=== PATIENT | female | born 1955 | race Caucasian/White ===

== ENCOUNTER 2019-03-10 09:23 | Day surgery (SDC) | payer MEDICARE, OTHER ==
[~2019-03-10] VITALS: Ht 167.6 cm; Wt 75.3 kg
[~2019-03-10 09:23] MED LIST: ADVA230A; LEVO100T5; LIDOCAINE 2% INJ 100 MG/5 ML SDV (FOR ANES.) As Ordered ONE; PANT40TA3; PROAAER10; PROPOFOL 200 MG/20 ML VIAL As Ordered ONE; SPIR1CAP
[2019-03-10] MEDS ORDERED: NS 1,000 ML IV ONE (10:30)
--- NOTE | 2019-03-10 10:30 | ROOR ---
Patient Name: Emily Gresham Procedure Date: 03/10/2019 10:15 AM Date of : 1955 Age: 64 Room: [facility] Gender: Female Note Status: Finalized Procedure: Upper GI endoscopy Indications: Dysphagia, Heartburn Providers: Brandon KELLY MD Referring MD: Luciano Do MD Requesting Provider: Medicines: Monitored Anesthesia Care Complications: No immediate complications. Procedure: Pre-Anesthesia Assessment: - The heart rate, respiratory rate, oxygen saturations, blood pressure, adequacy of pulmonary ventilation, and response to care were monitored throughout the procedure. The Endoscope was introduced through the mouth, and advanced to the second part of duodenum. The upper GI endoscopy was accomplished without difficulty. The patient tolerated the procedure well. Findings: The examined esophagus was normal. Small Hiatal Hernia. Diffuse minimal inflammation characterized by erythema was found in the gastric body. Biopsies were taken with a cold forceps for histology. The exam of the stomach was otherwise normal. (large compliant) The examined duodenum was normal. Impression: - Normal esophagus. - Small Hiatal Hernia. - Mild gastritis-Mucosal changes suspicious for chemical/bile gastritis. Biopsied. - The stomach is otherwise normal. - Normal examined duodenum. Recommendation: - Continue present medications. - Use sucralfate tablets 1 gram PO BID. - (the script was sent to your pharmacy on file) Brandon Kelly MD Brandon KELLY MD 03/10/2019 10:30:34 AM Electronically signed by Brandon KELLY MD Number of Addenda: 0 Note Initiated On: 03/10/2019 10:15 AM Estimated Blood Loss: Estimated blood loss: none.
--- NOTE | 2019-03-10 10:44 | ROOR ---
Patient Name: Emily Gresham Procedure Date: 03/10/2019 10:16 AM Date of : 1955 Age: 64 Room: [facility] Gender: Female Note Status: Finalized Procedure: Colonoscopy Indications: Hematochezia Providers: Brandon KELLY MD Referring MD: Luciano Do MD Requesting Provider: Medicines: Monitored Anesthesia Care Complications: No immediate complications. Procedure: Pre-Anesthesia Assessment: - The heart rate, respiratory rate, oxygen saturations, blood pressure, adequacy of pulmonary ventilation, and response to care were monitored throughout the procedure. The Colonoscope was introduced through the anus and advanced to the cecum, identified by appendiceal orifice and ileocecal valve. The colonoscopy was performed without difficulty. The patient tolerated the procedure well. The quality of the bowel preparation was good. Findings: The perianal and digital rectal examinations were normal. Small Internal Hemorrhoids. The entire examined colon appeared normal on direct and retroflexion views. Impression: - Small Internal Hemorrhoids. - The entire examined colon is normal on direct and retroflexion views. - No specimens collected. Recommendation: - Return to referring physician as previously scheduled. Brandon Kelly MD Brandon KELLY MD 03/10/2019 10:43:54 AM Electronically signed by Brandon KELLY MD Number of Addenda: 0 Note Initiated On: 03/10/2019 10:16 AM Estimated Blood Loss: Estimated blood loss: none.
[2019-03-10 11:07] VITALS: BP 131/70
== END 2019-03-10 11:09 | disposition home or self-care (01) ==
LOC: M OPP 09:23
PROVIDERS: ATTEND Internal Medicine Gastroenterology
DX: K64.8 Other hemorrhoids (principal); K92.1 Melena; K44.9 Diaphragmatic hernia without obstruction or gangrene; K31.89 Other diseases of stomach and duodenum; R13.10 Dysphagia, unspecified; R12 Heartburn

== ENCOUNTER → 2021-09-08 | Outpatient (CLI) | payer MEDICARE ==
[~2021-09-08] MED LIST changes: -LIDOCAINE 2% INJ 100 MG/5 ML SDV (FOR ANES.) As Ordered ONE; +PANT40TA29; -PANT40TA3; -PROPOFOL 200 MG/20 ML VIAL As Ordered ONE
== END ==
LOC: M RAD 14:52
PROVIDERS: ATTEND Internal Medicine Pulmonary Disease
DX: Z12.2 Encounter for screening for malignant neoplasm of respiratory organs (principal); Z87.891 Personal history of nicotine dependence; R91.8 Other nonspecific abnormal finding of lung field; J43.9 Emphysema, unspecified

== ENCOUNTER → 2022-04-07 | Outpatient (CLI) | payer MEDICARE | LOC: M RAD 13:04 | PROVIDERS: ATTEND Internal Medicine Pulmonary Disease | DX: R93.89 Abnormal findings on diagnostic imaging of other specified body structures (principal); R91.8 Other nonspecific abnormal finding of lung field; J43.9 Emphysema, unspecified ==

== ENCOUNTER → 2023-01-04 | Outpatient (CLI) | payer MEDICARE ==
[~2023-01-04] MED LIST changes: -ADVA230A; +ADVA230A INH; -LEVO100T5; +LEVO100T5 PO; +LEVO75TA4 PO; -PANT40TA29; +PANT40TA29 PO; +SPIR12.9 INH
== END ==
LOC: M LABSMTC 11:28
PROVIDERS: ATTEND Anesthesiology
DX: Z11.52 Encounter for screening for COVID-19 (principal); Z01.818 Encounter for other preprocedural examination

== ENCOUNTER 2023-01-09 12:48 | Day surgery (SDC) | payer MEDICARE ==
[~2023-01-09] VITALS: Ht 167.6 cm; Wt 67.0 kg
[~2023-01-09 12:48] MED LIST changes: +NS 1,000 ML IV ONE
[2023-01-09] MEDS ORDERED: propofoL 200 MG/20 ML VIAL As Ordered ONE (16:00)
[2023-01-09] MEDS ORDERED: LIDOCAINE 2% 100MG/5ML SDV (FOR ANES.) As Ordered ONE (16:01)
[2023-01-09 16:30] VITALS: BP 169/69
== END 2023-01-09 16:45 | disposition home or self-care (01) ==
LOC: M OPP 12:48
PROVIDERS: ATTEND Internal Medicine Gastroenterology
DX: K22.89 Other specified disease of esophagus (principal); K29.70 Gastritis, unspecified, without bleeding; E03.9 Hypothyroidism, unspecified; K44.9 Diaphragmatic hernia without obstruction or gangrene; Z87.891 Personal history of nicotine dependence; Z80.0 Family history of malignant neoplasm of digestive organs; Z79.51 Long term (current) use of inhaled steroids; Z79.890 Hormone replacement therapy; Z79.899 Other long term (current) drug therapy; Z88.4 Allergy status to anesthetic agent; Z88.8 Allergy status to other drugs, medicaments and biological substances; Z91.09 Other allergy status, other than to drugs and biological substances

== ENCOUNTER → 2023-04-18 | Outpatient (CLI) | payer MEDICARE ==
[~2023-04-18] MED LIST changes: -NS 1,000 ML IV ONE
== END ==
LOC: M RAD 16:05
PROVIDERS: ATTEND Internal Medicine Pulmonary Disease
DX: R91.8 Other nonspecific abnormal finding of lung field (principal); J44.9 Chronic obstructive pulmonary disease, unspecified